=== PATIENT | female | born 1975 | race Caucasian/White ===

== ENCOUNTER 2017-12-23 13:23 | Emergency (ER) | payer MEDICAID ==
[2017-12-23] MEDS ORDERED: KETOROLAC 30 MG/ML VIAL IVP ONE (14:17)
[2017-12-23] MEDS ORDERED: 0.9 % SODIUM CHLORIDE 1,000 ML BAG IV ONE ×2 (14:17→16:10)
[2017-12-23] MEDS ORDERED: DEXAMETHASONE SOD PHOSPHATE 10MG/ML VIAL IVP ONE (14:17)
--- NOTE | 2017-12-23 14:17 | Emergency Department Record ---
History of Present Illness - General Chief Complaint: Neck Injury/Pain Stated Complaint: RT SIDE NECK PAIN Time Seen by Provider: 12/23/17 14:11 Source: Patient, Family Mode of Arrival: Ambulatory Limitations: No limitations - History of Present Illness Initial Comments: 42 yo female presents with sore throat since Sunday. She has noticed some swollen glands as well. No fevers. She has pain with swallowing. No rash. Mild cough. She feels tired and run down. She states yesterday her pain was worse. Today it is not improving and it is very painful to swallow. No choking , no shortness of breath. She has an easily understandable voice. MD Complaint: Neck pain, Other Onset/Timin -: Days(s) Place: Home Radiation: Other Severity: Moderate Severity scale (1-10): 10 Consistency: Constant Improves With: None Worsens With: None Context: Other Associated Symptoms: Difficulty swallowing Treatments Prior to Arrival: Other (amoxicillin) - Related Data Home Medications Medication Instructions Recorded Confirmed Last Taken Albuterol Sulfate [Proair Hfa] 1 puff IH DAILY PRN 12/23/17 12/23/17 Unknown Montelukast Sodium [Singulair] 10 mg PO QHS 12/23/17 12/23/17 Unknown Allergies Allergy/AdvReac Type Severity Reaction Status Date / Time No Known Drug Allergies Allergy Verified 12/23/17 13:43 Travel Screening - Travel/Exposure Within Last 30 Days Have you traveled within the last 30 days?: No Review of Systems Constitutional: Reports: Malaise, Weakness. Denies: Chills, Fever Eyes: Denies: Eye discharge, Eye pain, Photophobia, Vision change ENT: Reports: Throat pain. Denies: Congestion Respiratory: Reports: Cough. Denies: Dyspnea Cardiovascular: Denies: Chest pain, Syncope Endocrine: Reports: Fatigue Gastrointestinal: Denies: Abdominal pain, Diarrhea, Nausea, Vomiting Genitourinary: Denies: Dysuria, Urgency Musculoskeletal: Reports: Neck pain. Denies: Arthralgia, Back pain, Myalgia Skin: Denies: Bruising, Change in color, Rash Neurological: Denies: Headache, Numbness, Vertigo, Weakness Psychiatric: Denies: Anxiety Hematological/Lymphatic: Reports: Swollen glands. Denies: Easy bleeding, Easy bruising Past Medical History - SOCIAL HISTORY Smoking Status: Current every day smoker Alcohol Use: Occasional Drug Use: None - RESPIRATORY Hx Respiratory Disorders: No - CARDIOVASCULAR Hx Cardio Disorders: No - NEURO Hx Neuro Disorders: Yes Hx Headaches: Yes - GI Hx GI Disorders: No - Hx Genitourinary Disorders: No - ENDOCRINE Hx Endocrine Disorders: No - MUSCULOSKELETAL Hx Musculoskeletal Disorders: No - PSYCH Hx Psych Problems: No - HEMATOLOGY/ONCOLOGY Hx Hematology/Oncology Disorders: No Family Medical History Any Significant Family History?: No Physical Exam - General General Appearance: Alert, Oriented x3, Cooperative, No acute distress Limitations: No limitations - Head Head exam: Normal inspection - Eye Eye exam: Normal appearance, PERRL. negative: Conjunctival injection - ENT ENT exam: Normal exam Ear exam: Normal external inspection Nasal Exam: Normal inspection Mouth exam: Normal external inspection Teeth exam: Normal inspection Throat exam: Normal inspection. negative: Tonsillar erythema, Tonsillomegaly, Tonsillar exudate, R peritonsillar mass, L peritonsillar mass - Neck Neck exam: Normal inspection, Full ROM, Lymphadenopathy (moderate bilateral LN, mobile but tender), Tenderness - Respiratory Respiratory exam: Normal lung sounds bilaterally. negative: Respiratory distress - Cardiovascular Cardiovascular Exam: Regular rate, Normal rhythm, Normal heart sounds - GI/Abdominal GI/Abdominal exam: Soft - Rectal Rectal exam: Deferred - exam: Deferred - Extremities Extremities exam: Normal inspection - Back Back exam: Denies: CVA tenderness (R), CVA tenderness (L) - Neurological Neurological exam: Alert, Oriented X3 - Psychiatric Psychiatric exam: Normal affect, Normal mood - Skin Skin exam: Dry, Intact, Normal color, Warm Course Vital Signs 12/23/17 13:47 Temperature 98.7 F Pulse Rate [ 94 H Pulse Ox Probe] Respiratory 20 Rate Blood Pressure 123/93 [Left Arm] Pulse Ox 98 - Reevaluation(s) Reevaluation #1: 12/23/17 14:53 The CBC was reviewed. WBC is 16.5 The Meriwether is negative The Strep is negative 12/23/17 15:07 HCG is negative CMP is negative 12/23/17 19:25 CT demonstrates right sided swelling of epiglottis, periform sinus and subglottic area, normal cords Given the pain with swallowing recommend admission for IV antibiotics and steroids MGL will be called. 12/23/17 19:55 Dr Bhandari was contacted. He accepts the patient for transfer. The patient is relaxed. No distress. No signs of airway compromise. Unasyn has been given. Awaiting a room for transfer. Medical Decision Making - Lab Data Result diagrams: 12/23/17 14:25 12/23/17 14:25 Disposition Disposition: Transfer Clinical Impression: Cervical lymphadenitis Acute epiglottitis Qualifiers: Airway obstruction: without obstruction Qualified Code(s): J05.10 - Acute epiglottitis without obstruction Disposition: Home, Self-Care Transfer To: [facility] [place] Reason For Transfer: epiglotitis Accepting Physician: Thony Time Discussed w/Accepting Physician: 19:56 Condition: (1) Good Forms: Patient Portal Access Time of Disposition: 19:30 Quality - Quality Measures Quality Measures: N/A - Blood Pressure Screening Does Patient Have Any of the Following: No Blood Pressure Classification: Normal BP Reading Systolic Measurement: 108 Diastolic Measurement: 65 Screening for High Blood Pressure: < Normal BP, F/U Not Required > [G8783]
[2017-12-23 14:35] LABS: MEAN CELL VOLUME 92.1 fl (81-97); MEAN CORPUSCULAR HEMOGLOBIN 30.7 pg (27-33); MEAN CORPUSCULAR HGB CONC 33.3 g/dl (32-36); MEAN PLATELET VOLUME 10.6 fl (7.4-10.4); PLATELET COUNT 231 K/uL (130-400); RED BLOOD COUNT 5.21 M/uL (3.80-5.40); RED CELL DISTRIBUTION WIDTH 14.3 % (11.5-14.5); WHITE BLOOD COUNT W/O DIFF 16.5 K/uL (4.2-12.2)
[2017-12-23 14:43] LABS: BLOOD UREA NITROGEN 10 mg/dL (6-20)
[2017-12-23 14:44] LABS: CREATININE 0.8 mg/dL (0.5-0.9); EST GLOMERULAR FILTRATION RATE > 60 mL/min; TOTAL PROTEIN 8.2 g/dL (6.6-8.7)
[2017-12-23 14:46] LABS: GLUCOSE,RANDOM 98 mg/dL (74-109); MONOSCREEN NEGATIVE (NEGATIVE)
[2017-12-23 14:49] LABS: ALB/GLOB RATIO 1.2 (1.1-1.8); ALBUMIN 4.5 g/dL (4.0-5.0); ALKALINE PHOSPHATASE 64 U/L (35-104); ALT/SGPT 15 U/L (<33); AST/SGOT 15 U/L (10.0-35.0)
[2017-12-23 14:51] LABS: PLATELET ESTIMATE NORMAL (NORMAL)
[2017-12-23] MEDS ORDERED: ACETAMINOPHEN 1,000 MG/100 ML BTL IVPB ONE (16:25)
[2017-12-23] MEDS ORDERED: AMPICILLIN SODIUM/SULBACTAM NA 3 G in 0.9 % SODIUM CHLORIDE 100ML 100 ML IVPB ONE (19:29)
--- NOTE | 2017-12-24 15:14 | CT SCAN REPORT ---
EXAM: CT OF THE NECK WITH CONTRAST HISTORY: EDEMA. TECHNIQUE: Sequential axial images were obtained through the soft tissue neck after intravenous administration of 100 ml of Omnipaque 300 contrast material. FINDINGS: There is mild edema of the right side of the epiglottis extending into the subglottic airway. There is edema of the right piriform sinus. The tongue base appears normal. The true and false cords and trachea appear normal. The thyroid gland appears normal. The parotid and submandibular glands appear normal. The paranasal sinuses appear normal. The mastoid air cells appear normal. IMPRESSION: EDEMA OF THE RIGHT SIDE OF THE EPIGLOTTIS EXTENDING INTO THE SUBGLOTTIC AIRWAY. THERE IS EFFACEMENT OF THE RIGHT PIRIFORM SINUS WITH NARROWING OF THE AIRWAY IN THIS REGION. NONSPECIFIC SUBGLOTTIC EDEMA NARROWING THE RIGHT PIRIFORM SINUS. JOB NUMBER: [id number] MTDD
== END 2017-12-23 21:03 | disposition home or self-care (01) ==
LOC: ER 13:23
DX: J05.10 Acute epiglottitis without obstruction (principal); L04.0 Acute lymphadenitis of face, head and neck; R13.10 Dysphagia, unspecified; F17.210 Nicotine dependence, cigarettes, uncomplicated
CPT/HCPCS: 99285 ×2; 96365; 96366; 96375; 80053; 87880; 84703; 86308; 85027; 70491; Q9967; J0295; J1885; J1100; J7030